=== PATIENT | male | born 1940 | race Caucasian/White ===

== ENCOUNTER 2021-07-11 19:02 | Emergency (ER) | payer OTHER, SELFPAY ==
[2021-07-11 19:04] VITALS: BP 128/70; PULSE 94; RESP 18; TEMP 36.6; O2SAT 94; BMI 36.2
--- NOTE | 2021-07-11 19:22 | EKG12_ITS ---
Test Reason : DYSRHYTHMIA Blood Pressure : / mmHG Vent. Rate : 089 BPM Atrial Rate : 089 BPM P-R Int : 196 ms QRS Dur : 082 ms QT Int : 368 ms P-R-T Axes : 024 -18 -02 degrees QTc Int : 447 ms Sinus rhythm with Premature atrial complexes in a pattern of bigeminy Low voltage QRS Inferior infarct , age undetermined , cannot be excluded Abnormal ECG Confirmed by SANDOVAL DARNELL, JASON ([id number]), video news editor BRIANNE RITTER ([id number]) on 07/13/2021 10:41:20 AM Referred By: OMARI Confirmed By:JASON NICK MD
--- NOTE | 2021-07-11 19:22 | EDS_ITS ---
HPI History of Present Illness Chief Complaint: Syncope Detail of Chief Complaint: Syncopal episode prior to arrival in the emergency department Informant: patient and spouse/S.O. Narrative Narrative: Patient presents to the emergency department after sustaining a syncopal episode. Patient states that he was at a large gathering speaking with individuals when he started feeling woozy and sweaty and felt like he might pass out. Patient began feeling nauseated and bystanders laid him flat and after 5 minutes his symptoms resolved. On arrival patient has no complaints. Patient is not had any recent illness. He denies chest pain or palpitations. He is never had this happen before. Denies recent illness. Patient had COVID-19 about a year ago. Prior similar symptoms: No [facility] Medical History (Updated 07/11/21 @ 20:[address] Helena Alegria DO) GERD (gastroesophageal reflux disease) History of CVA (cerebrovascular accident) Hyperlipidemia Home Medications aspirin 81 mg PO DAILY 07/11/21 [History Last Taken Unknown] clopidogrel [Plavix] 75 mg PO DAILY 07/11/21 [History Last Taken Unknown] omeprazole magnesium [Prilosec OTC] 10 mg PO DAILY 07/11/21 [History Last Taken Unknown] pravastatin 5 mg PO DAILY 07/11/21 [History Last Taken Unknown] Allergy/AdvReac Type Severity Reaction Status Date / Time No Known Allergies Allergy Verified 07/11/21 19:03 Social History Smoking Status: Never smoker ROS ROS ED ROS Narrative Dizziness and diaphoresis Constitutional Constitutional ED: Reports systems reviewed and no addt'l complaints, except as documented; Denies body ache(s), change in weight or chills Eyes Eyes: Denies acute decrease in peripheral vision, change in vision, double vision or loss of vision ENT ENT ED: Reports none; Denies ear pain, lip swelling, loss taste/smell, neck pain, otalgia or sore throat Cardiovascular Cardiovascular: Reports none; Denies abdominal pain, chest pain with activity, leg edema, lightheadedness, palpitations, rapid heart rate or syncope Respiratory/Chest Respiratory/Chest: Reports none; Denies change in mental status, dry cough, dyspnea, hemoptysis, shortness of breath at rest or shortness of breath with exertion Gastrointestinal Gastrointestinal: Reports none and nausea; Denies abdominal pain, change in stool character, diarrhea, hematemesis, hematochezia, melena, rectal bleeding or vomiting Genitourinary Genitourinary ED: Reports none; Denies abdominal discomfort, anuria, dysuria, genital pain or polyuria Musculoskeletal Musculoskeletal: Reports none; Denies arthralgias, back pain, difficulty walking, extremity pain, muscle weakness or myalgias Integumentary Reports none; Denies abscess or rash Neurologic Neurologic: Reports none; Denies abnormal gait, confusion, focal weakness, frequent falls, headache(s), loss of vision, numbness, paresthesias, radicular pain, vertigo or weakness Psychiatric Psychiatric: Reports systems reviewed and no addt'l complaints, except as documented and none; Denies behavioral changes, confusion, difficulty concentrating, hallucinations, suicidal ideation, tactile hallucinations or visual hallucinations Endocrine Endocrinology: Denies none, cold intolerance, excessive sweating, fatigue or heat intolerance Hematologic/Lymphatic Hematologic/Lymphatic: Reports none; Denies anemia, easy bleeding or easy bruising Allergic/Immunologic Allergic/Immunologic ED: Denies as per HPI, none, lip swelling, mouth swelling, throat swelling, tongue swelling or hives EXAM Physical Exam Const Vital Signs: 07/11/21 19:04 07/11/21 19:40 07/11/21 19:58 Temperature 97.8 F Temperature Source Oral Pulse Rate 94 Pulse Rate [Lying] 75 Pulse Rate [Sitting] 88 Pulse Rate [Standing] 100 Respiratory Rate 18 Respiratory Effort Normal Non-Labored Respiratory Pattern Normal Blood Pressure 128/70 H Blood Pressure [Lying] 111/72 Blood Pressure [Sitting] 107/78 Blood Pressure [Standing] 119/84 H Blood Pressure Mean 89 Blood Pressure Mean [Lying] 85 Blood Pressure Mean [Sitting] 87 Blood Pressure Mean [Standing] 95 Pulse Ox 94 Oxygen Delivery Method Room Air 07/11/21 20:03 Temperature Temperature Source Pulse Rate 83 Pulse Rate [Lying] Pulse Rate [Sitting] Pulse Rate [Standing] Respiratory Rate 19 H Respiratory Effort Respiratory Pattern Blood Pressure 111/72 Blood Pressure [Lying] Blood Pressure [Sitting] Blood Pressure [Standing] Blood Pressure Mean 85 Blood Pressure Mean [Lying] Blood Pressure Mean [Sitting] Blood Pressure Mean [Standing] Pulse Ox 95 Oxygen Delivery Method Room Air Positive well nourished and well developed General Appearance ED: well developed and NAD HEENT Reports TM's clear and moist mucous membranes normocephalic and atraumatic; Negative for trauma or tenderness Tympanic Membrane ED: Yes TM's clear Eyes PERRL and EOMs intact bilaterally General Eye ED: Negative for pale conjunctiva or scleral icterus Neck no lymphadenopathy, supple and no JVD General: Negative for tenderness Chest Wall inspection of chest normal and palpation of chest normal Chest: Negative for tenderness Resp normal respiratory effort and clear to auscultation bilaterally Effort and Inspection: Negative for respiratory distress or pain with movement Auscultation: Negative for rhonchi, wheezes or diminished lung sounds Cardio regular rate, regular rhythm, S1 normal heart sound, S2 normal heart sound and no murmurs Peripheral Pulses: pulses 2+ throughout GI normal to inspection, nondistended, normoactive bowel sounds, soft to palpation, non-tender, non-distended and no masses Back/Spine no CVA tenderness and no thoracic nor lumbar tenderness Extremity normal to inspection General Extremety ED: Negative for edema General Extremity: Negative for edema Neuro oriented x3, CN's II-XII intact bilaterally, no sensory deficits noted and gait normal Sensorium / Orientation: awake, alert, oriented to person, oriented to place and oriented to time Motor Exam: strength 5/5 throughout and strength abnormal Psych mental status grossly normal Skin no rashes or lesions noted and no wounds MDM MDM MDM Narrative Medical decision making narrative: Based on patient history I suspect he likely had a vasovagal episode. Patient symptoms normalized after he was laid flat. His work-up in the department is unremarkable. Patient had negative orthostatics and was able to ambulate without difficulty. Patient will be discharged to home and advised to follow-up with primary care physician next 3 to 5 days. Lab Data Attestation: I reviewed the patient's lab results. Labs: Laboratory Results - last 24 hr 07/11/21 07/11/21 19:25 19:25 WBC 7.6 RBC 4.59 L Hgb 14.7 Hct 44.0 MCV 95.9 H MCH 32.0 MCHC 33.4 RDW Std Deviation 44.8 H RDW Coeff of [place] 12.7 Plt Count 201 MPV 9.5 Immature Gran % (Auto) 0.400 Neut % (Auto) 68.4 Lymph % (Auto) 18.0 L Becker % (Auto) 7.0 Eos % (Auto) 5.4 H Baso % (Auto) 0.8 Absolute Neuts (auto) 5.2 Absolute Lymphs (auto) 1.37 Nucleated RBC % 0 Sodium 139 Potassium 3.9 Chloride 108 H Carbon Dioxide 25.0 Anion Gap 6 BUN 24 H Creatinine 1.83 H Estim Creat Clear Calc 35.93 Est GFR (MDRD) Af Amer 46 L Est GFR (MDRD) Non-Af 38 L BUN/Creatinine Ratio 13.1 Glucose 164 H Calcium 8.9 Troponin I High Sens 12 EKG Initial EKG: Attestation: I personally reviewed and interpreted this EKG as follows: Comments: Sinus rhythm with a ventricular rate of 89 bpm with old inferior infarct noted Prior EKG tracings: not available for review Discharge Plan Triage Chief Complaint: Syncope ED Provider: Helena Alegria Dx/Rx/DC Orders Clinical Impression: Syncope, vasovagal Instructions: ED Fainting, Vagal Reaction Prescriptions: No Action clopidogrel [Plavix] 75 mg Tablet 75 mg PO DAILY RF: 0 pravastatin 10 mg Tablet 5 mg PO DAILY RF: 0 aspirin 81 mg Tablet 81 mg PO DAILY RF: 0 omeprazole magnesium [Prilosec OTC] 20 mg Tablet,Delayed Release (Dr/Ec) 10 mg PO DAILY RF: 0 Primary Care Provider: Trinity Avalos,Out of Referrals: Trinity Avalos,Out of [Primary Care Provider] - Activity Restrictions/Additional Instructions: Follow-up with your family doctor in 3 to 5 days Disposition Disposition: Home, Self Care
[2021-07-11 19:37] LABS: Absolute Lymphocyte Count 1.37 X10^3/uL (0.83-4.51); Absolute Neutrophil Count 5.2 X10^3/uL (2.0-7.7); Basophil# 0.06 X10^3/uL; Basophil% 0.8 % (0-1); Eosinophil# 0.41 X10^3/uL; Eosinophils% 5.4 % (0-5); Hemoglobin 14.7 g/dL (13.0-16.5); Lymphocyte # 1.37 X10^3/ul (0.83-4.51); Mean Corp Hgb Conc 33.4 g/dL (32-36); Mean Corpuscular Volume 95.9 fL (80-94); Mean Platelet Vol. 9.5 fl (6.2-12.0); Monocyte# 0.53 X10^3/uL; NRBC Flagged by Analyzer 0 % (0-5); Neutrophil # 5.22 X10^3/uL (2.7-7.7); Neutrophil % 68.4 % (47-70); Platelet Count 201 K/mm3 (150-450); RBC Distribution Width CV 12.7 % (11.6-14.6); RBC Distribution Width SD 44.8 fl (35.1-43.9); Red Blood Count 4.59 M/mm3 (4.6-6.2); White Blood Count 7.6 K/mm3 (4.4-11.0)
[2021-07-11 19:58] VITALS: BP 107/78; BP 111/72; BP 119/84; PULSE 100; PULSE 75; PULSE 88
[2021-07-11 19:58] LABS: Anion Gap 6 (5-15); BUN 24 mg/dL (7-18); BUN/Creat Ratio 13.1 RATIO (10-20); Calcium,Total 8.9 mg/dL (8.5-10.1); Chloride 108 mmol/L (98-107); Creatinine, Serum 1.83 mg/dL (0.70-1.30); EST Glomerular Filtration Rate 38 mL/min (>60); Est Glom Filt Rate - Afr Amer 46 mL/min (>60); Estimated Creatinine Clearance 35.93 ml/min; Glucose 164 mg/dL (74-106); Potassium 3.9 mmol/L (3.5-5.1); Sodium Level 139 mmol/L (136-145); Troponin-I HS 12 pg/mL (3.0-78.0)
[2021-07-11] MEDS: 0.9% Normal Saline 1,000 ML 150 ML IV (20:00)
[2021-07-11 20:03] VITALS: BP 111/72; PULSE 83; RESP 19; O2SAT 95
[2021-07-11 20:31] VITALS: BP 120/75; PULSE 71; RESP 18; O2SAT 98
== END 2021-07-11 20:32 | disposition home or self-care (01) ==
PROVIDERS: Emergency Provider Emergency Medicine
DX: R55 Syncope and collapse (principal); E78.5 Hyperlipidemia, unspecified; K21.9 Gastro-esophageal reflux disease without esophagitis; Z79.82 Long term (current) use of aspirin; Z86.73 Personal history of transient ischemic attack (TIA), and cerebral infarction without residual deficits
CPT/HCPCS: 80048; 84484; 85025; 93005; 96360; 99285; J7030; A4216